=== PATIENT | female | born 1990 | race Caucasian/White ===

== ENCOUNTER 2023-10-02 15:32 | Outpatient (CLI) | payer BC, SELFPAY ==
--- OUTSIDE RECORDS SUMMARY | 2023-10-02 15:34 | XMS_ITS | Clinical Summary ---
Author Organization [employer] [facility] [employer] [facility] Address [place], [place] [address] Care Team Providers Care Automobile Mechanic Helper Name Role Phone Pcp, No Primary Care Provider Unavailabl e Allergies Active Allergy Reactions Criticality Noted Date Comments Sulfa (Sulfonamide Antibiotics) 11/09 eye drop reaction Medications Medication Sig Dispensed Refills Start Date End Date Status norgestimate-ethinyl estradiol, 0.25-35 mg-mcg, (SPRINTEC) 0.25-35 mg-mcg tabletIndications:Oral contraceptive use Take 1 tablet by mouth once daily. 3 Package 3 07/22/2016 Active FLUoxetine (PROZAC) 40 mg capsuleIndications:MDD (major depressive disorder), recurrent episode, moderate (HC) Take 1 capsule by mouth every morning. 90 capsule 3 12/19/2016 Active buPROPion (WELLBUTRIN XL) 300 mg Extended-Release tabletIndications:MDD (major depressive disorder), recurrent episode, moderate (HC) Take 1 tablet by mouth every morning. 90 tablet 3 12/19/2016 Active ipratropium (ATROVENT NASAL) 0.03 % nasal sprayIndications:Chron ic rhinitis, unspecified type TID PRN [place] dose in each nostril. 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 KP (obstructive sleep apnea) 09/23/2012 Vitamin D deficiency 06/27/2011 Chronic rhinitis Resolved Problems Problem Noted Date Diagnosed Date Resolved Date Pain management contract agreement 09/08/2015 10/17/2015 Elevated blood pressure read ing without diagnosis of hypertension 06/21/2011 09/13/2013 Adjustment disorder with depressed mood 12/06/2008 12/19/2016 Immunizations Name Administration Dates Next Due DTP 11/28/1993, 3,01/07/1991, 0,1988 HIB PRP-D (ProHIBIT) 01/07/1991 Hepatitis B (Peds) 04/17/2001,12/03/2000, 001 Human Papilloma Virus Vaccine 05/10/2009, 009,09/26/2008 04/27/2009 Influenza, IIV3 (Age >=3 years) 04/12/2013,03/23 MMR 10/09/2000,01/07/1991 Oral Polio Vaccine 11/28/1993, 3,01/07/1991, 0,1988 Td (Age >=7 Years) 08/19/1999 Tdap 08/27/2011 Tuberculin (PPD) 01/14/2012 Family History Medical History Relation Name Comments Heart Disease Brother 2 Heart Disease Father Diabetes Maternal Grandmother Thyroid Disease Mother Relation Name Status Comments Brother 1 Alive x1 Brother 2 Father Alive Maternal Grandfather Maternal Grandmother Alive Mother Alive Paternal Grandfather Alive Paternal Grandmother Alive Sister Alive x2 Son [place] Alive Social History Tobacco Use Types Packs/Day Years Used Date Smoking Tobacco: Never Smokeless Tobacco: Never Tobacco Cessation:Counseling Given: Yes Alcohol Use Standard Drinks/Week Comments No 0 (1 standard drink = 0.6 oz pur e alcohol) Sex and Gender Information Value Date Recorded Sex Assigned at Not on file Gender Identity Not on file Sexual Orientation Not on file Obstetrics History Para Term AB IAB SAB Ectopic Multiple Livin g Live Births 1 1 1 1 1 Date Outcome GA Total Labor Labor/2nd/3rd Weight Sex Delivery Anes PTL Tawnya A1 A5 Name Cl in 08/07 Term 38w 0d 24h 00m/ 3.6 kg (7 lb 15 oz) M CS-LTranv Epidu ral N Janel ng 8 9 Ricki Madri d Drevl ow/Sm ith Delivery Location:[facility] Comments:failure to pr ogress, maternal fever, induction for PUPP Comments Blood type B positive. Last Filed Vital Signs Vital Sign Reading Time Taken Comments Blood Pressure 132/80 05/08/2017 1:03 PM GLOBAL CONSUMER SECTOR VICE PRESIDENT Pulse 78 05/08/2017 1:03 PM GLOBAL CONSUMER SECTOR VICE PRESIDENT Temperature 36.7 ??C (98 ??F) 03/03/2017 12: 52 PM CDT Respiratory Rate 16 05/08/2017 1:03 PM GLOBAL CONSUMER SECTOR VICE PRESIDENT Oxygen Saturation 98% 03/03/2017 12: 52 PM CDT Inhaled Oxygen Concentration - - Weight 101.8 kg (224 lb 6.4 oz) 017 12:52 PM CDT Height 160.7 cm (5' 3.25) 03/03/2017 1 2:52 PM CDT Body Mass Index 39.44 03/03/2017 12:52 PM CDT Plan of Treatment Health Maintenance Due Date Last Done Comments Depression screening for age 12+ 12/19/2017 12/19/2016, 04/30/2016, 04/29/2016, Additional history exists BMI (ht and wt on same day) for age 18+ 03/03/2018 03/03/2017, 12/19/2016, 06/07/2016, Additional history exists Tetanus booster 08/26/2021 08/27/2011, 08/19/1999 Pap test for age 21-65 06/03/2022 , 06/03/2019, 05/01/2016, Additional history exists COVID-19 vaccine series (2022- season) 2023 Influenza for age 9-49 01/11/2024 04/12/2013, 2011 HIV for age 15-65 Completed 02/10/2008 Tdap Completed 08/27/2011 Hepatitis C screening for age 18-79 Completed 11/30/2014, 02/10/2008 Pneumococcal series for age 6-64 Aged Out No longer eligible based on patient's age to complete this topic Procedures Procedure Name Priority Date/Time Associated Diagnosis Comments SHOES HAND SEWER THIN PREP PAP SCREEN IMAGED Routine 06/03/2019 2:35 PM GLOBAL CONSUMER SECTOR VICE PRESIDENT ACUTE HEPATITIS PANEL Routine 11/30/2014 1:36 PM CDT Elevated LFTs ANTI HIV 1/2 Routine 02/10/2008 11:12 AM CDT Supervision of Normal First from Last 3 Months or Most Recently Relevant to Health Maintenance Results * SHOES HAND SEWER THIN PREP PAP SCREEN IMAGED (06/03/2019 2:35 PM GLOBAL CONSUMER SECTOR VICE PRESIDENT) Case Report Gynecologic Cytology Report ? Case: [id number] ? Authorizing Provider: ??Dara Holly MD ??Collected: ? 06/03/2019 1435 ? Ordering Location: ? [facility] ?Received: ?06/07/2019 1214 ? First Screen: ?Sugar Nolasco ? Specimen: ?SHOES HAND SEWER ThinPrep Vial Screening, Cervical/Vaginal ? 06/16/2019 3:56 PM GLOBAL CONSUMER SECTOR VICE PRESIDENT [facility] INTERPRETATION/ RESULT NEGATIVE FOR INTRAEPITHELIAL LESION OR MALIGNANCY (NIL) (none) 06/16/2019 3:56 PM GLOBAL CONSUMER SECTOR VICE PRESIDENT [facility] IMEN ADEQUACY Satisfactory for evaluation Endocervical component present 06/16/2019 3:56 PM GLOBAL CONSUMER SECTOR VICE PRESIDENT [facility] HPV REQUEST HPV and PAP 06/16/2019 3:56 PM GLOBAL CONSUMER SECTOR VICE PRESIDENT [facility] Additional Information 06/16/2019 3:56 PM GLOBAL CONSUMER SECTOR VICE PRESIDENT [facility] Comment: Interpreted at [facility] - [address], [place] [address] Automated Review Successful 06/16/2019 3:56 PM GLOBAL CONSUMER SECTOR VICE PRESIDENT [facility] Comment:Specimen processed s uccessfully by automated destination imagination coordinator device, ThinPrep Imaging System, [email or web address] ANCILLARY TESTING SHOES HAND SEWER HPV Ordered, Please see separate report 06/16/2019 3:56 PM GLOBAL CONSUMER SECTOR VICE PRESIDENT [facility] Note The pap test is a screening technique, not a diagnostic procedure. It is used primarily to screen for squamous cancers and precursor lesions. Published studies have shown that it is subject to both false negative and false positive results. The pap test should not be used as the sole means to diagnose or exclude pre-malignant and malignant lesions. 06/16/2019 3:56 PM GLOBAL CONSUMER SECTOR VICE PRESIDENT [facility] Other (Cervical/Vagina l) 06/03/2019 2:35 PM GLOBAL CONSUMER SECTOR VICE PRESIDENT 06/07/2019 12:14 PM GLOBAL CONSUMER SECTOR VICE PRESIDENT Dara Holly MD PATHOLOGY/CYTOLO GY [facility] [address] [place] [address], * ACUTE HEPATITIS PANEL (11/30/2014 1:36 PM CDT) HEPATITIS C ANTIBODY Non-Reactive Non-Reactive 11/30/2014 8:48 PM CDT [facility] IGM ANTI HAV Non-Reactive Non-Reactive 11/30/2014 8:48 PM CDT [facility] HBSAG Nonreactive Nonreactive 11/30/2014 8:48 PM CDT [facility] IGM ANTI HBC Non-Reactive Non-Reactive 11/30/2014 8:48 PM CDT [facility] Blood specimen (specimen) BLOOD SPECIMEN / Unknown Venipuncture / Unknown 11/30/2014 1:36 PM CDT 11/30/2014 1:37 PM CDT Narrative [facility] - 11/30/2014 8:48 PM CDT Anti-HBc IgM not detected. Does not exclude the possibility of exposure to or infection with HBV. Gagandeep Sanchez DO SEND OUTS [facility] [address] [place] [address], [place] * ANTI HIV 1/2 (02/10/2008 11:12 AM CDT) ANTI HIV 1/2 Non-reacti ve [facility] Blood specimen (specimen) BLOOD SPECIMEN / Unknown 02/10/2008 11:12 AM CDT 02/10/2008 10:54 AM CDT Gagandeep Sanchez DO SEND OUTS [facility] [place] ZIP [address] [address] from Last 3 Months or Most Recently Relevant to Health Maintenance Care Teams Automobile Mechanic Helper Relationship Specialty Start Date End Date Pcp, No . PCP - General 06/20/17
== END 2023-10-02 15:33 | disposition home or self-care (01) ==
PROVIDERS: PCP Family Medicine; Visit Provider Family Medicine
DX: E11.69 Type 2 diabetes mellitus with other specified complication (principal); K76.0 Fatty (change of) liver, not elsewhere classified; R53.83 Other fatigue
CPT/HCPCS: 80053; 80061; 82043; 82306; 82570; 84443

== ENCOUNTER 2023-10-24 07:47 | Outpatient (CLI) | payer BC, SELFPAY ==
--- OUTSIDE RECORDS SUMMARY | 2023-10-27 20:51 | XMS_ITS | Clinical Summary ---
Author Organization [employer] [facility] [employer] [facility] Address [place], [place] [address] Care Team Providers Care Merchandise Marker Name Role Phone Pcp, No Primary Care [...] sprayIndications:Chron ic rhinitis, unspecified type TID PRN [place] dose in each nostril. 30 mL 05/08/2017 [...] Paternal Grandmother Alive Sister Alive x2 Son [place] Alive Social History Tobacco Use Types Packs/Day [...] Outcome GA Total Labor Labor/2nd/3rd Weight Sex Type Anes PTL Tawnya A1 A5 Name Clin 2008 Term 38w 0d 24h 00m/ 3.6 kg (7 lb 15 oz) M CS-LT ranv Epidur al N Livin g 8 9 Ricki Solitario Drevl ow/Sm ith Delivery Location:[facility] Comments:failure to pr ogress, maternal fever, induction for PUPP Comments Blood type B positive. Last Filed Vital Signs Vital Sign Reading Time Taken Comments Blood Pressure 132/80 05/08/2017 1:03 PM BANK NOTE DESIGNER Pulse 78 05/08/2017 1:03 PM BANK NOTE DESIGNER Temperature 36.7 ??C (98 ??F) 03/03/2017 12: 52 PM CDT Respiratory Rate 16 05/08/2017 1:03 PM BANK NOTE DESIGNER Oxygen Saturation 98% 03/03/2017 12: 52 PM [...] Procedure Name Priority Date/Time Associated Diagnosis Comments TRACK MACHINE OPERATOR REPAIRER THIN PREP PAP SCREEN IMAGED Routine 06/03/2019 2:35 PM BANK NOTE DESIGNER ACUTE HEPATITIS PANEL Routine 11/30/2014 1:36 PM CDT Elevated LFTs ANTI HIV 1/2 Routine 02/10/2008 11:12 AM CDT Supervision of Normal First from Last 3 Months or Most Recently Relevant to Health Maintenance Results * TRACK MACHINE OPERATOR REPAIRER THIN PREP PAP SCREEN IMAGED (06/03/2019 2:35 PM BANK NOTE DESIGNER) Case Report Gynecologic Cytology Report ? Case: [id number] ? Authorizing Provider: ??Dara Holly MD ??Collected: ? 06/03/2019 1435 ? Ordering Location: ? [facility] ?Received: ?06/07/2019 1214 ? First Screen: ?Sugar Nolasco ? Specimen: ?TRACK MACHINE OPERATOR REPAIRER ThinPrep Vial Screening, Cervical/Vaginal ? 06/16/2019 3:56 PM BANK NOTE DESIGNER [facility]- ENTRAL LABORATORY INTERPRETATION/ RESULT NEGATIVE FOR INTRAEPITHELIAL LESION OR MALIGNANCY (NIL) (none) 06/16/2019 3:56 PM BANK NOTE DESIGNER [facility] IMEN ADEQUACY Satisfactory for evaluation Endocervical component present 06/16/2019 3:56 PM BANK NOTE DESIGNER [facility] HPV REQUEST HPV and PAP 06/16/2019 3:56 PM BANK NOTE DESIGNER [facility] Additional Information 06/16/2019 3:56 PM BANK NOTE DESIGNER [facility] Comment: Interpreted at [facility] - [address], [place] [address] Automated Review Successful 06/16/2019 3:56 PM BANK NOTE DESIGNER [facility] Comment:Specimen processed s uccessfully by automated softball core molder device, ApontadorPrep Imaging System, [employer] ANCILLARY TESTING TRACK MACHINE OPERATOR REPAIRER HPV Ordered, Please see separate report 06/16/2019 3:56 PM BANK NOTE DESIGNER [facility] Note The pap test is [...] pre-malignant and malignant lesions. 06/16/2019 3:56 PM BANK NOTE DESIGNER [facility] Other (Cervical/Vagina l) 06/03/2019 2:35 PM BANK NOTE DESIGNER 06/07/2019 12:14 PM BANK NOTE DESIGNER Dara Holly MD PATHOLOGY/CYTOLO GY [facility] [address] [place] [address], * ACUTE HEPATITIS PANEL (11/30/2014 1:36 PM CDT) HEPATITIS C ANTIBODY Non-Reactive Non-Reactive 11/30/2014 8:48 PM CDT [facility] IGM ANTI HAV Non-Reactive Non-Reactive 11/30/2014 8:48 PM CDT [facility] HBSAG Nonreactive Nonreactive 11/30/2014 8:48 PM CDT [facility] IGM ANTI HBC Non-Reactive Non-Reactive 11/30/2014 8:48 PM CDT [facility] Blood specimen (specimen) BLOOD SPECIMEN / Unknown Venipuncture / Unknown 11/30/2014 1:36 PM CDT 11/30/2014 1:37 PM CDT Narrative [facility] - 11/30/2014 8:48 PM CDT Anti-HBc IgM not detected. Does not exclude the possibility of exposure to or infection with HBV. Gagandeep Sanchez DO SEND OUTS [facility] LAB[facility] [address] [place] [address], [place] * ANTI HIV 1/2 (02/10/2008 11:12 AM CDT) ANTI HIV 1/2 Non-reacti ve [facility] Blood specimen (specimen) BLOOD SPECIMEN / Unknown 02/10/2008 11:12 AM CDT 02/10/2008 10:54 AM CDT Gagandeep Sanchez DO SEND OUTS [facility] [place] ZIP [address] [address] from Last 3 Months or Most Recently Relevant to Health Maintenance Care Teams Merchandise Marker Relationship Specialty Start Date End Date Pcp, No . PCP - General 06/20/17
== END 2023-10-24 07:48 | disposition home or self-care (01) ==
LOC: NFLDREF 10-27 20:49
PROVIDERS: PCP Family Medicine; Referring Provider Family Medicine; Visit Provider Family Medicine
DX: I10 Essential (primary) hypertension (principal)
CPT/HCPCS: 80048

== ENCOUNTER 2024-01-07 07:35 | Outpatient (CLI) | payer BC, SELFPAY ==
--- OUTSIDE RECORDS SUMMARY | 2024-01-08 11:46 | XMS_ITS | Clinical Summary ---
Author Organization [employer] [facility] [employer] [facility] Address [place], [place] [address] Care Team Providers Care Digital Print Operator Name Role Phone Pcp, No Primary Care [...] sprayIndications:Chron ic rhinitis, unspecified type TID PRN [place] dose in each nostril. 30 mL 05/08/2017 [...] Paternal Grandmother Alive Sister Alive x2 Son [place] Alive Social History Tobacco Use Types Packs/Day [...] 9 Ricki Solitario Drevl ow/Sm ith Delivery Location:[facility] Comments:failure to pr ogress, maternal fever, induction for PUPP Comments Blood type B positive. Last Filed Vital Signs Vital Sign Reading Time Taken Comments Blood Pressure 132/80 05/08/2017 1:03 PM TABLEAU ADMINISTRATOR Pulse 78 05/08/2017 1:03 PM TABLEAU ADMINISTRATOR Temperature 36.7 ??C (98 ??F) 03/03/2017 12: 52 PM CDT Respiratory Rate 16 05/08/2017 1:03 PM TABLEAU ADMINISTRATOR Oxygen Saturation 98% 03/03/2017 12: 52 PM [...] Procedure Name Priority Date/Time Associated Diagnosis Comments LIVER TRIMMER THIN PREP PAP SCREEN IMAGED Routine 06/03/2019 2:35 PM TABLEAU ADMINISTRATOR ACUTE HEPATITIS PANEL Routine 11/30/2014 1:36 PM CDT Elevated LFTs ANTI HIV 1/2 Routine 02/10/2008 11:12 AM CDT Supervision of Normal First from Last 3 Months or Most Recently Relevant to Health Maintenance Results * LIVER TRIMMER THIN PREP PAP SCREEN IMAGED (06/03/2019 2:35 PM TABLEAU ADMINISTRATOR) Case Report Gynecologic Cytology Report ? Case: [id number] ? Authorizing Provider: ??Dara Holly MD ??Collected: ? 06/03/2019 1435 ? Ordering Location: ? [facility] ?Received: ?06/07/2019 1214 ? First Screen: ?Sugar Nolasco ? Specimen: ?LIVER TRIMMER ThinPrep Vial Screening, Cervical/Vaginal ? 06/16/2019 3:56 PM TABLEAU ADMINISTRATOR [facility]- ENTRAL LABORAT[facility] INTERPRETATION/ RESULT NEGATIVE FOR INTRAEPITHELIAL LESION OR MALIGNANCY (NIL) (none) 06/16/2019 3:56 PM TABLEAU ADMINISTRATOR [facility] IMEN ADEQUACY Satisfactory for evaluation Endocervical component present 06/16/2019 3:56 PM TABLEAU ADMINISTRATOR [facility] HPV REQUEST HPV and PAP 06/16/2019 3:56 PM TABLEAU ADMINISTRATOR [facility] Additional Information 06/16/2019 3:56 PM TABLEAU ADMINISTRATOR [facility] Comment: Interpreted at [facility] - [address], [place] [address] Automated Review Successful 06/16/2019 3:56 PM TABLEAU ADMINISTRATOR [facility] Comment:Specimen processed s uccessfully by automated seed expert device, [employer]Prep Imaging System, [employer] ANCILLARY TESTING LIVER TRIMMER HPV Ordered, Please see separate report 06/16/2019 3:56 PM TABLEAU ADMINISTRATOR [facility] Note The pap test is a screening technique, not a diagnostic procedure. It is used primarily to screen for squamous cancers and precursor lesions. Published studies have shown that it is subject to both false negative and false positive results. The pap test should not be used as the sole means to diagnose or exclude pre-malignant and malignant lesions. 06/16/2019 3:56 PM TABLEAU ADMINISTRATOR [facility] Other (Cervical/Vagina l) 06/03/2019 2:35 PM TABLEAU ADMINISTRATOR 06/07/2019 12:14 PM TABLEAU ADMINISTRATOR Dara Holly MD PATHOLOGY/CYTOLO GY [facility] [address] [place] [address], * ACUTE HEPATITIS PANEL (11/30/2014 1:36 PM CDT) HEPATITIS C ANTIBODY Non-Reactive Non-Reactive 11/30/2014 8:48 PM CDT [facility] IGM ANTI HAV Non-Reactive Non-Reactive 11/30/2014 8:48 PM CDT [facility] HBSAG Nonreactive Nonreactive 11/30/2014 8:48 PM CDT [facility] IGM ANTI HBC Non-Reactive Non-Reactive 11/30/2014 8:48 PM CDT [facility] Blood specimen (specimen) BLOOD SPECIMEN / Unknown Venipuncture / Unknown 11/30/2014 1:36 PM CDT 11/30/2014 1:[address] [facility] - 11/30/2014 8:48 PM CDT Anti-HBc IgM not detected. Does not exclude the possibility of exposure to or infection with HBV. Gagandeep Sanchez DO SEND OUTS [facility]-C[facility]AL LABORATORY [address] [place] [address], [place] * ANTI HIV 1/2 (02/10/2008 11:12 AM CDT) ANTI HIV 1/2 Non-reacti ve [facility] Blood specimen (specimen) BLOOD SPECIMEN / Unknown 02/10/2008 11:12 AM CDT 02/10/2008 10:54 AM CDT Gagandeep Sanchez DO SEND OUTS [facility] [place] ZIP [address] [address] from Last 3 Months or Most Recently Relevant to Health Maintenance Care Teams Digital Print Operator Relationship Specialty Start Date End Date Pcp, No . PCP - General 06/20/17
== END 2024-01-07 07:36 | disposition home or self-care (01) ==
LOC: NFLDREF 01-08 11:44
PROVIDERS: PCP Family Medicine; Referring Provider Family Medicine; Visit Provider Family Medicine
DX: I10 Essential (primary) hypertension (principal); E55.9 Vitamin D deficiency, unspecified; E66.9 Obesity, unspecified; M81.0 Age-related osteoporosis without current pathological fracture; E11.69 Type 2 diabetes mellitus with other specified complication; E11.21 Type 2 diabetes mellitus with diabetic nephropathy
CPT/HCPCS: 80053; 82043; 82306; 82570

== ENCOUNTER 2024-04-13 08:35 | Outpatient (CLI) | payer BC, SELFPAY ==
--- OUTSIDE RECORDS SUMMARY | 2024-04-16 04:48 | XMS_ITS | Clinical Summary ---
Author Organization [facility] Address [place], [place] [address] Care Team Providers Care Motion Picture Projectionist Apprentice Name Role Phone Pcp, No Primary Care [...] sprayIndications:Chron ic rhinitis, unspecified type TID PRN Cadet dose in each nostril. 30 mL 05/08/2017 [...] Paternal Grandmother Alive Sister Alive x2 Son Clements Alive Social History Tobacco Use Types Packs/Day [...] 9 Ricki Solitario Drevl ow/Sm ith Delivery Location:[facility] Comments:failure to pr ogress, maternal fever, induction for PUPP Comments Blood type B positive. Last Filed Vital Signs Vital Sign Reading Time Taken Comments Blood Pressure 132/80 05/08/2017 1:03 PM E BUSINESS SPECIALIST Pulse 78 05/08/2017 1:03 PM E BUSINESS SPECIALIST Temperature 36.7 C (98 F) 03/03/2017 12:52 PM CDT Respiratory Rate 16 05/08/2017 1:03 PM E BUSINESS SPECIALIST Oxygen Saturation 98% 03/03/2017 12: 52 PM [...] 08/19/1999 Pap test for age 21-65 06/03/2022 0, 06/03/2019, 05/01/2016, Additional history exists COVID-19 vaccine series (2023- season) 2024 Influenza for age 9-49 01/11/2024 04/12/2013, 2011 HIV for age 15-65 Completed 02/10/2008 Tdap Completed 08/27/2011 Hepatitis C screening for age 18-79 Completed 11/30/2014, 02/10/2008 Pneumococcal series for age 6-64 Aged Out No longer eligible based on patient's age to complete this topic Procedures Procedure Name Priority Date/Time Associated Diagnosis Comments TABLEAU REPORT DEVELOPER THIN PREP PAP SCREEN IMAGED Routine 06/03/2019 2:35 PM E BUSINESS SPECIALIST ACUTE HEPATITIS PANEL Routine 11/30/2014 1:36 PM CDT Elevated LFTs ANTI HIV 1/2 Routine 02/10/2008 11:12 AM CDT Supervision of Normal First from Last 3 Months or Most Recently Relevant to Health Maintenance Results * TABLEAU REPORT DEVELOPER THIN PREP PAP SCREEN IMAGED (06/03/2019 2:35 PM E BUSINESS SPECIALIST) Case Report Gynecologic Cytology Report Case: [id number] Authorizing Provider: Dara Holly MD Collected: 06/03/2019 1435 Ordering Location: [facility] Received: 06/07/2019 1214 First Screen: Sugar Nolasco Specimen: TABLEAU REPORT DEVELOPER ThinPrep Vial Screening, Cervical/Vaginal 06/16/2019 3:56 PM E BUSINESS SPECIALIST [facility] [employer] [facility] INTERPRETATION/ RESULT NEGATIVE FOR INTRAEPITHELIAL LESION OR MALIGNANCY (NIL) (none) 06/16/2019 3:56 PM E BUSINESS SPECIALIST [facility] IMEN ADEQUACY Satisfactory for evaluation Endocervical component present 06/16/2019 3:56 PM E BUSINESS SPECIALIST [facility] HPV REQUEST HPV and PAP 06/16/2019 3:56 PM E BUSINESS SPECIALIST [facility] Additional Information 06/16/2019 3:56 PM E BUSINESS SPECIALIST [facility] Comment: Interpreted at [facility] - [address], [place] [address] Automated Review Successful 06/16/2019 3:56 PM E BUSINESS SPECIALIST [facility] Comment:Specimen processed s uccessfully by automated rotary drier operator device, ThinPrep Imaging System, [employer] ANCILLARY TESTING TABLEAU REPORT DEVELOPER HPV Ordered, Please see separate report 06/16/2019 3:56 PM E BUSINESS SPECIALIST [facility] Note The pap test is a screening technique, not a diagnostic procedure. It is used primarily to screen for squamous cancers and precursor lesions. Published studies have shown that it is subject to both false negative and false positive results. The pap test should not be used as the sole means to diagnose or exclude pre-malignant and malignant lesions. 06/16/2019 3:56 PM E BUSINESS SPECIALIST [facility] Other (Cervical/Vagina l) 06/03/2019 2:35 PM E BUSINESS SPECIALIST 06/07/2019 12:14 PM E BUSINESS SPECIALIST Dara Holly MD PATHOLOGY/CYTOLO GY [facility] [address] [place] [address], * ACUTE HEPATITIS PANEL (11/30/2014 1:36 PM CDT) HEPATITIS C ANTIBODY Non-Reactive Non-Reactive 11/30/2014 8:48 PM CDT [facility] IGM ANTI HAV Non-Reactive Non-Reactive 11/30/2014 8:48 PM CDT [facility] HBSAG Nonreactive Nonreactive 11/30/2014 8:48 PM CDT [facility] IGM ANTI HBC Non-Reactive Non-Reactive 11/30/2014 8:48 PM CDT [facility] Blood specimen (specimen) BLOOD SPECIMEN / Unknown Venipuncture / Unknown 11/30/2014 1:36 PM CDT 11/30/2014 1:37 PM CDT Narrative [facility] - 11/30/2014 8:48 PM CDT Anti-HBc IgM not detected. Does not exclude the possibility of exposure to or infection with HBV. Gagandeep Sanchez DO SEND OUTS [facility] [address] [place] [address], [place] * ANTI HIV 1/2 (02/10/2008 11:12 AM CDT) ANTI HIV 1/2 Non-reacti ve [facility] Blood specimen (specimen) BLOOD SPECIMEN / Unknown 02/10/2008 11:12 AM CDT 02/10/2008 10:54 AM CDT Gagandeeporiana Ungeredgar Matttrevor DO SEND OUTS [facility] [place] ZIP [id number] [address] [place] [address] from Last 3 Months or Most Recently Relevant to Health Maintenance Care Teams Motion Picture Projectionist Apprentice Relationship Specialty Start Date End Date Pcp, No . PCP - General 06/20/17
== END 2024-04-13 08:36 | disposition home or self-care (01) ==
LOC: NFLDREF 04-16 04:47
PROVIDERS: PCP Family Medicine; Referring Provider Family Medicine; Visit Provider Family Medicine
DX: I10 Essential (primary) hypertension (principal); E55.9 Vitamin D deficiency, unspecified; E11.69 Type 2 diabetes mellitus with other specified complication; E78.5 Hyperlipidemia, unspecified; M81.0 Age-related osteoporosis without current pathological fracture; E66.01 Morbid (severe) obesity due to excess calories
CPT/HCPCS: 80053; 80061; 82043; 82306; 82570

== ENCOUNTER 2024-12-10 07:39 | Outpatient (CLI) | payer BC, SELFPAY | END 2024-12-10 07:40 | disposition home or self-care (01) | LOC: NFLDREF 12-14 16:22 | PROVIDERS: PCP Family Medicine; Referring Provider Family Medicine; Visit Provider Family Medicine | DX: E78.5 Hyperlipidemia, unspecified (principal); I10 Essential (primary) hypertension; E55.9 Vitamin D deficiency, unspecified; E11.69 Type 2 diabetes mellitus with other specified complication; E66.9 Obesity, unspecified | CPT/HCPCS: 80053; 80061; 82043; 82306; 82570 ==

== ENCOUNTER 2025-03-11 09:25 | Outpatient (CLI) | payer BC, SELFPAY | END 2025-03-11 09:26 | disposition home or self-care (01) | LOC: NFLDREF 03-14 18:19 | PROVIDERS: PCP Family Medicine; Referring Provider Family Medicine; Visit Provider Family Medicine | DX: I10 Essential (primary) hypertension (principal); E55.9 Vitamin D deficiency, unspecified; E78.5 Hyperlipidemia, unspecified; K76.0 Fatty (change of) liver, not elsewhere classified | CPT/HCPCS: 80053; 80061; 82043; 82306; 82570; 82607 ==